=== PATIENT | female | born 1940 | race Caucasian/White ===

== ENCOUNTER 2018-06-27 12:53 | Inpatient (IN) | payer MEDICARE, OTHER | END 2018-07-03 09:45 | LOC: ER 12:53 → ED HOLD 15:20 → PCU 3S 19:30 | DX: T79.6XXA Traumatic ischemia of muscle, initial encounter (principal); I50.31 Acute diastolic (congestive) heart failure; G93.41 Metabolic encephalopathy; J44.1 Chronic obstructive pulmonary disease with (acute) exacerbation; E87.4 Mixed disorder of acid-base balance; J96.10 Chronic respiratory failure, unspecified whether with hypoxia or hypercapnia; N17.9 Acute kidney failure, unspecified; E86.0 Dehydration; S09.90XA Unspecified injury of head, initial encounter; I48.91 Unspecified atrial fibrillation; E87.5 Hyperkalemia; I27.20 Pulmonary hypertension, unspecified ==

== ENCOUNTER 2023-07-23 01:36 | Inpatient (IN) | payer MEDICARE, OTHER ==
[2023-07-23] VITALS (27 sets, daily range): BP systolic 73–126; BP diastolic 25–92; PULSE 51–75; RESP 13–24; TEMP 96.1–97.8; O2SAT 94–100
[~2023-07-23] VITALS: Ht 165.1 cm; Wt 114.0 kg
[~2023-07-23 01:36] MED LIST: CARV6.253 PO; CITA-119 PO; DABI150C PO; HYDR-4353 PO; LOSA50TA64 PO; SIMV-342 PO; SPIR25TA5 PO
[2023-07-23 02:26] LABS: BASOPHILS # (AUTO) 0.1 X10'3 (0-0.2); BASOPHILS % (AUTO) 0.6 % (0-1); EOSINOPHILS % (AUTO) 0.3 % (0-6); LYMPHOCYTES # (AUTO) 2.1 X10'3 (1.1-4.8); LYMPHOCYTES % (AUTO) 16.8 % (21-51); MEAN CORPUSCULAR HEMOGLOBIN 24.5 PG (27.0-31.0); MEAN CORPUSCULAR HGB CONC 31.5 g/dL (33.0-36.5); MEAN CORPUSCULAR VOLUME 77.7 FL (78-98); MEAN PLATELET VOLUME 7.8 FL (7.4-10.4); MONOCYTES # (AUTO) 0.6 X10'3 (0-0.9); MONOCYTES % (AUTO) 4.8 % (2-12); NEUTROPHILS # (AUTO) 9.7 X10'3 (1.8-7.7); NEUTROPHILS % (AUTO) 77.5 % (42-75); PLATELET COUNT 226 X10'3 (140-440); RED BLOOD COUNT 1.33 X10'6 (4.20-5.60); RED CELL DISTRIBUTION WIDTH 18.9 % (11.5-14.5); WHITE BLOOD COUNT 12.5 X10'3 (4.5-11.0)
[2023-07-23 02:34] LABS: HEMOGLOBIN 3.2 g/dl (12.0-16.0)
[2023-07-23 02:35] LABS: HEMATOCRIT 10.3 % (35.0-45.0)
[2023-07-23 02:45] LABS: ALANINE AMINOTRANSFERASE 12 U/L (12-78); ALBUMIN 2.3 G/DL (3.4-5.0); ALBUMIN/GLOBULIN RATIO 0.8 (1.1-1.5); ALKALINE PHOSPHATASE 70 IU/L (46-116); ANION GAP 11 (8-16); ASPARTATE AMINO TRANSFERASE 12 U/L (10-37); BILIRUBIN,TOTAL 0.3 MG/DL (0.1-1.0); BLOOD UREA NITROGEN 127 MG/DL (7-18); CALCIUM 8.2 MG/DL (8.5-10.1); CHLORIDE 103 MMOL/L (99-107); CREATININE 1.74 MG/DL (0.40-0.90); GLUCOSE 204 MG/DL (70-104); POTASSIUM 5.7 MMOL/L (3.5-5.1); SODIUM 137 MMOL/L (135-145); TOTAL CARBON DIOXIDE 22.8 MMOL/L (24-32); TOTAL PROTEIN 5.3 G/DL (6.4-8.2); eCRCL 22 ML/MIN; eGFR 28 ML/MIN
[2023-07-23] MEDS ORDERED: calcium gluconate inj. 1 GM in normal saline 100ml IV soln 100 ML IV ONE (02:50)
[2023-07-23] MEDS: sodium polystyrene sulfonate 15gm/60ml oral suspension PO ONE (02:50)
[2023-07-23 02:54] LABS: PRO BRAIN NATRIURETIC PEPTIDE 1342 PG/ML (0-450)
[2023-07-23] MEDS: CALCIUM GLUC 1gm/50ml NACL,iso 50 ML IV ONE (02:56)
[2023-07-23] MEDS: pantoprazole 40 MG vial IV STA (03:08)
[2023-07-23] MEDS: sodium bicarbonate (8.4%) 1 mEq/ml syringe IV ONE (03:08)
[2023-07-23] MEDS: dextrose 50%-water 50ml dispensing syringe IV ONE (03:08)
[2023-07-23] MEDS: acetaminophen 1,000mg/100ml IV 100 ML IV STA (03:09)
[2023-07-23] MEDS: insulin regular, human U-100 3ml vial - multi-dose IV ONE (03:12)
[2023-07-23] MEDS: LIDOcaine 5% patch TP STA (03:18)
[2023-07-23] MEDS: morphine 2 MG/ML inj. syringe IV ONE (04:23)
[2023-07-23] MEDS ORDERED: potassium Cl 40MEQ/1/2NS 520ml 520 ML IV PRN (04:30)
[2023-07-23] MEDS ORDERED: magnesium hydroxide 30ml (MOM) UD suspension PO PRN (04:30)
[2023-07-23] MEDS ORDERED: ondansetron/PF 4mg/2ml inj IV PRN (04:30)
[2023-07-23] MEDS ORDERED: magnesium Cl slow-release 64mg tablet PO PRN (04:30)
[2023-07-23] MEDS ORDERED: morphine 2 MG/ML inj. syringe IV PRN (04:30)
[2023-07-23] MEDS ORDERED: magnesium 2GM in 50ml NS 50 ML IV PRN (04:30)
[2023-07-23] MEDS ORDERED: magnesium 4gm in 100ml NS 100 ML IV PRN (04:30)
[2023-07-23] MEDS ORDERED: mag hydrox/Alum hydrox/simeth 30ml oral suspension PO PRN (04:30)
[2023-07-23] MEDS ORDERED: potassium Cl 20 mEq SR tablet PO PRN ×2 (04:30)
[2023-07-23 07:32] LABS: HEMATOCRIT 23.6 % (35.0-45.0); HEMOGLOBIN 7.7 g/dl (12.0-16.0); MEAN CORPUSCULAR HEMOGLOBIN 27.8 PG (27.0-31.0); MEAN CORPUSCULAR HGB CONC 32.5 g/dL (33.0-36.5); MEAN CORPUSCULAR VOLUME 85.5 FL (78-98); MEAN PLATELET VOLUME 7.9 FL (7.4-10.4); PLATELET COUNT 171 X10'3 (140-440); RED BLOOD COUNT 2.76 X10'6 (4.20-5.60); RED CELL DISTRIBUTION WIDTH 17.8 % (11.5-14.5); WHITE BLOOD COUNT 13.7 X10'3 (4.5-11.0)
[2023-07-23] MEDS: K and/or MAG REPLACEMENT MC SCH (07:34)
[2023-07-23] MEDS: docusate sod 100mg capsule PO SCH (07:34)
[2023-07-23] MEDS: pantoprazole 40MG/NS 100ML BAG 100 ML IV SCH (07:34)
[2023-07-23 08:03] LABS: BILIRUBIN,URINE NEGATIVE (Neg); CLARITY,URINE CLEAR (Clear); COLOR,URINE YELLOW (Yellow); GLUCOSE, URINE NEGATIVE (Neg); KETONES,URINE NEGATIVE (Neg); LEUKOCYTE ESTERASE ,URINE SMALL (Neg); NITRITES, URINE NEGATIVE (Neg); OCCULT BLOOD,URINE NEGATIVE (Neg); PH,URINE 5.5 (4.8-8.0); PROTEIN,URINE NEGATIVE (Neg); UROBILINOGEN,URINE 0.2 E.U/dL (0.2-1.0)
[2023-07-23 08:08] LABS: UA COLLECTION TYPE NON-SPECIFIED
[2023-07-23 08:15] LABS: BACTERIA,URINE FEW /HPF (Neg); MUCUS STRANDS NONE SEEN /LPF (Neg); RBC,URINE NONE SEEN /HPF (0-2); SQUAMOUS EPITHELIAL CELL,UR FEW /LPF (FEW)
[2023-07-23 08:15] LABS: TOTAL IRON BINDING CAPACITY 315 UG/DL (259-388)
[2023-07-23 08:25] LABS: % IRON SATURATION 24 % (11-46); IRON 77 UG/DL (49-151)
[2023-07-23 08:30] LABS: RED BLOOD COUNT 1.36 X10'6 (4.20-5.60); RETICULOCYTE % (AUTO) 4.1 % (0.5-1.5)
[2023-07-23] MEDS: morphine 2 MG/ML inj. syringe IV PRN (08:30)
[2023-07-23 08:37] LABS: MAGNESIUM 2.7 MG/DL (1.5-2.4)
[2023-07-23] MEDS ORDERED: glucagon, human recombinant 1mg kit SUBCUT PRN (10:30)
[2023-07-23] MEDS: MESSAGE TO PHARMACY PO ONE (10:30)
[2023-07-23] MEDS ORDERED: dextrose 50%-water 50ml dispensing syringe IV PRN ×2 (10:30)
[2023-07-23] MEDS ORDERED: DEXTROSE 15 GM of carb/4 tabs (each vial/BOTTLE has 4 tablets) PO PRN ×2 (10:30)
[2023-07-23] MEDS ORDERED: insulin Lispro (HumaLOG) vial - multi-dose SQ SCH (10:30)
[2023-07-23 10:41] LABS: POTASSIUM 5.7 MMOL/L (3.5-5.1)
[2023-07-23] MEDS: PEG 3350/Na sulf,bicarb,Cl/KCl oral sol 4 liter bottle PO ONE (15:19)
[2023-07-23] MEDS ORDERED: acetaminophen 325mg tablet PO PRN (19:20)
[2023-07-23 20:02] LABS: MEAN CORPUSCULAR HEMOGLOBIN 29.5 PG (27.0-31.0); MEAN CORPUSCULAR HGB CONC 33.7 g/dL (33.0-36.5); MEAN CORPUSCULAR VOLUME 87.6 FL (78-98); MEAN PLATELET VOLUME 7.6 FL (7.4-10.4); PLATELET COUNT 132 X10'3 (140-440); RED BLOOD COUNT 2.18 X10'6 (4.20-5.60); RED CELL DISTRIBUTION WIDTH 18.3 % (11.5-14.5)
[2023-07-23 20:14] LABS: HEMATOCRIT 19.1 % (35.0-45.0); HEMOGLOBIN 6.5 g/dl (12.0-16.0)
[2023-07-23] MEDS: albumin (Human) 5% 250ml 250 ML IV STA (20:44)
[2023-07-23] MEDS: acetaminophen 325mg tablet PO PRN (20:48)
[2023-07-23] MEDS: insulin glargine (Lantus) pen - multi-dose SQ SCH (21:00)
[2023-07-23 22:13] LABS: ALBUMIN 2.5 G/DL (3.4-5.0); ANION GAP 7 (8-16); BLOOD UREA NITROGEN 106 MG/DL (7-18); BUN/CREATININE RATIO 72.6 (10.0-20.0); CALCIUM 7.4 MG/DL (8.5-10.1); CHLORIDE 104 MMOL/L (99-107); CREATININE 1.46 MG/DL (0.40-0.90); GLUCOSE 167 MG/DL (70-104); POTASSIUM 4.6 MMOL/L (3.5-5.1); SODIUM 141 MMOL/L (135-145); TOTAL CARBON DIOXIDE 29.7 MMOL/L (24-32); eCRCL 26 ML/MIN; eGFR 34 ML/MIN
[2023-07-24] VITALS (17 sets, daily range): BP systolic 87–134; BP diastolic 35–82; PULSE 57–82; RESP 16–24; TEMP 96.5–97.8; O2SAT 92–99
[2023-07-24] MEDS: HYDROcodone/acetaminophen 5mg/325mg tablet PO PRN (01:04)
[2023-07-24 08:19] LABS: BASOPHILS # (AUTO) 0.1 X10'3 (0-0.2); BASOPHILS % (AUTO) 0.6 % (0-1); EOSINOPHILS # (AUTO) 0.2 X10'3 (0-0.9); EOSINOPHILS % (AUTO) 1.8 % (0-6); HEMATOCRIT 32.6 % (35.0-45.0); HEMOGLOBIN 10.9 g/dl (12.0-16.0); LYMPHOCYTES # (AUTO) 1.5 X10'3 (1.1-4.8); LYMPHOCYTES % (AUTO) 11.1 % (21-51); MEAN CORPUSCULAR HEMOGLOBIN 29.5 PG (27.0-31.0); MEAN CORPUSCULAR HGB CONC 33.6 g/dL (33.0-36.5); MEAN CORPUSCULAR VOLUME 87.7 FL (78-98); MEAN PLATELET VOLUME 7.8 FL (7.4-10.4); MONOCYTES # (AUTO) 1.4 X10'3 (0-0.9); MONOCYTES % (AUTO) 9.8 % (2-12); NEUTROPHILS # (AUTO) 10.6 X10'3 (1.8-7.7); NEUTROPHILS % (AUTO) 76.7 % (42-75); PLATELET COUNT 162 X10'3 (140-440); RED BLOOD COUNT 3.71 X10'6 (4.20-5.60); WHITE BLOOD COUNT 13.8 X10'3 (4.5-11.0)
[2023-07-24 08:31] LABS: ALANINE AMINOTRANSFERASE 12 U/L (12-78); ALBUMIN 2.6 G/DL (3.4-5.0); ALBUMIN/GLOBULIN RATIO 0.8 (1.1-1.5); ALKALINE PHOSPHATASE 81 IU/L (46-116); ANION GAP 9 (8-16); ASPARTATE AMINO TRANSFERASE 29 U/L (10-37); BILIRUBIN,TOTAL 1.3 MG/DL (0.1-1.0); BLOOD UREA NITROGEN 95 MG/DL (7-18); BUN/CREATININE RATIO 72.5 (10.0-20.0); CALCIUM 7.6 MG/DL (8.5-10.1); CHLORIDE 106 MMOL/L (99-107); CREATININE 1.31 MG/DL (0.40-0.90); GLUCOSE 132 MG/DL (70-104); MAGNESIUM 2.6 MG/DL (1.5-2.4); POTASSIUM 4.3 MMOL/L (3.5-5.1); SODIUM 141 MMOL/L (135-145); TOTAL CARBON DIOXIDE 25.9 MMOL/L (24-32); TOTAL PROTEIN 5.8 G/DL (6.4-8.2); eCRCL 29 ML/MIN; eGFR 39 ML/MIN
[2023-07-24] MEDS: furosemide 40mg/4ml inj IV SCH (10:58)
[2023-07-24 13:37] LABS: HEMATOCRIT 32.5 % (35.0-45.0); MEAN CORPUSCULAR HEMOGLOBIN 29.5 PG (27.0-31.0); MEAN CORPUSCULAR HGB CONC 33.8 g/dL (33.0-36.5); MEAN CORPUSCULAR VOLUME 87.3 FL (78-98); MEAN PLATELET VOLUME 7.8 FL (7.4-10.4); PLATELET COUNT 175 X10'3 (140-440); RED BLOOD COUNT 3.72 X10'6 (4.20-5.60); RED CELL DISTRIBUTION WIDTH 18.4 % (11.5-14.5); WHITE BLOOD COUNT 14.3 X10'3 (4.5-11.0)
[2023-07-24] MEDS ORDERED: fentaNYL/PF 50MCG/1 ML 2ML syringe ONE (13:43)
[2023-07-24] MEDS ORDERED: MIDAZolam 1 MG/ML 5ML VIAL ONE (13:43)
[2023-07-24] MEDS ORDERED: LIDOcaine 2% Viscous 15ml cup ONE (13:50)
[2023-07-24] MEDS: atorvastatin 10mg tablet PO SCH (20:09)
[2023-07-24 20:54] LABS: HEMATOCRIT 30.1 % (35.0-45.0); HEMOGLOBIN 10.4 g/dl (12.0-16.0); MEAN CORPUSCULAR HEMOGLOBIN 29.9 PG (27.0-31.0); MEAN CORPUSCULAR HGB CONC 34.4 g/dL (33.0-36.5); MEAN CORPUSCULAR VOLUME 86.8 FL (78-98); MEAN PLATELET VOLUME 7.6 FL (7.4-10.4); PLATELET COUNT 157 X10'3 (140-440); RED BLOOD COUNT 3.47 X10'6 (4.20-5.60); RED CELL DISTRIBUTION WIDTH 18.6 % (11.5-14.5); WHITE BLOOD COUNT 13.3 X10'3 (4.5-11.0)
[2023-07-25] VITALS (9 sets, daily range): BP systolic 111–152; BP diastolic 40–89; PULSE 66–81; RESP 15–19; TEMP 97–98.1; O2SAT 94–99
[2023-07-25 08:35] LABS: BASOPHILS # (AUTO) 0.1 X10'3 (0-0.2); BASOPHILS % (AUTO) 0.9 % (0-1); EOSINOPHILS # (AUTO) 0.2 X10'3 (0-0.9); EOSINOPHILS % (AUTO) 1.8 % (0-6); HEMOGLOBIN 10.7 g/dl (12.0-16.0); LYMPHOCYTES # (AUTO) 1.9 X10'3 (1.1-4.8); LYMPHOCYTES % (AUTO) 14.1 % (21-51); MEAN CORPUSCULAR HEMOGLOBIN 29.5 PG (27.0-31.0); MEAN CORPUSCULAR HGB CONC 33.4 g/dL (33.0-36.5); MEAN CORPUSCULAR VOLUME 88.3 FL (78-98); MEAN PLATELET VOLUME 7.8 FL (7.4-10.4); MONOCYTES # (AUTO) 1.2 X10'3 (0-0.9); MONOCYTES % (AUTO) 8.8 % (2-12); NEUTROPHILS # (AUTO) 9.8 X10'3 (1.8-7.7); NEUTROPHILS % (AUTO) 74.4 % (42-75); PLATELET COUNT 186 X10'3 (140-440); RED BLOOD COUNT 3.63 X10'6 (4.20-5.60); RED CELL DISTRIBUTION WIDTH 18.7 % (11.5-14.5); WHITE BLOOD COUNT 13.1 X10'3 (4.5-11.0)
[2023-07-25 08:54] LABS: ALANINE AMINOTRANSFERASE 17 U/L (12-78); ALBUMIN 2.7 G/DL (3.4-5.0); ALBUMIN/GLOBULIN RATIO 0.8 (1.1-1.5); ALKALINE PHOSPHATASE 91 IU/L (46-116); ANION GAP 4 (8-16); ASPARTATE AMINO TRANSFERASE 37 U/L (10-37); BILIRUBIN,TOTAL 0.8 MG/DL (0.1-1.0); BLOOD UREA NITROGEN 76 MG/DL (7-18); BUN/CREATININE RATIO 67.3 (10.0-20.0); CALCIUM 7.9 MG/DL (8.5-10.1); CHLORIDE 104 MMOL/L (99-107); CREATININE 1.13 MG/DL (0.40-0.90); GLUCOSE 130 MG/DL (70-104); MAGNESIUM 2.4 MG/DL (1.5-2.4); POTASSIUM 3.7 MMOL/L (3.5-5.1); SODIUM 140 MMOL/L (135-145); TOTAL CARBON DIOXIDE 31.6 MMOL/L (24-32); TOTAL PROTEIN 6.1 G/DL (6.4-8.2); eCRCL 34 ML/MIN; eGFR 46 ML/MIN
[2023-07-25] MEDS: citalopram 20mg tablet PO SCH (09:08)
[2023-07-25] MEDS: pantoprazole 40mg Tablet.DR PO SCH (21:02)
[2023-07-26] VITALS (7 sets, daily range): BP systolic 103–141; BP diastolic 40–64; PULSE 72–84; RESP 13–22; TEMP 97.2–98.3; O2SAT 96–99
[2023-07-26 08:17] LABS: BASOPHILS # (AUTO) 0.1 X10'3 (0-0.2); BASOPHILS % (AUTO) 0.6 % (0-1); EOSINOPHILS # (AUTO) 0.1 X10'3 (0-0.9); EOSINOPHILS % (AUTO) 1.4 % (0-6); HEMATOCRIT 29.7 % (35.0-45.0); LYMPHOCYTES # (AUTO) 1.4 X10'3 (1.1-4.8); MEAN CORPUSCULAR HEMOGLOBIN 29.6 PG (27.0-31.0); MEAN CORPUSCULAR HGB CONC 33.5 g/dL (33.0-36.5); MEAN CORPUSCULAR VOLUME 88.4 FL (78-98); MEAN PLATELET VOLUME 7.5 FL (7.4-10.4); MONOCYTES # (AUTO) 1.1 X10'3 (0-0.9); MONOCYTES % (AUTO) 10.5 % (2-12); NEUTROPHILS # (AUTO) 7.6 X10'3 (1.8-7.7); NEUTROPHILS % (AUTO) 73.5 % (42-75); PLATELET COUNT 187 X10'3 (140-440); RED BLOOD COUNT 3.37 X10'6 (4.20-5.60); RED CELL DISTRIBUTION WIDTH 18.2 % (11.5-14.5); WHITE BLOOD COUNT 10.3 X10'3 (4.5-11.0)
[2023-07-26 08:53] LABS: ALANINE AMINOTRANSFERASE 19 U/L (12-78); ALBUMIN 2.3 G/DL (3.4-5.0); ALBUMIN/GLOBULIN RATIO 0.7 (1.1-1.5); ALKALINE PHOSPHATASE 72 IU/L (46-116); ANION GAP 6 (8-16); ASPARTATE AMINO TRANSFERASE 27 U/L (10-37); BILIRUBIN,TOTAL 0.7 MG/DL (0.1-1.0); CALCIUM 8.5 MG/DL (8.5-10.1); CHLORIDE 107 MMOL/L (99-107); CREATININE 0.85 MG/DL (0.40-0.90); GLUCOSE 136 MG/DL (70-104); MAGNESIUM 2.3 MG/DL (1.5-2.4); POTASSIUM 3.8 MMOL/L (3.5-5.1); SODIUM 145 MMOL/L (135-145); TOTAL CARBON DIOXIDE 31.7 MMOL/L (24-32); TOTAL PROTEIN 5.5 G/DL (6.4-8.2); eCRCL 45 ML/MIN; eGFR 64 ML/MIN
[2023-07-26 08:59] LABS: BLOOD UREA NITROGEN 52 MG/DL (7-18); BUN/CREATININE RATIO 61.2 (10.0-20.0)
[2023-07-27 02:00] VITALS: BP 119/60; PULSE 74; RESP 18; TEMP 97.6; O2SAT 94
[2023-07-27] MEDS ORDERED: DEXTROSE 15 GM of carb/4 tabs (each vial/BOTTLE has 4 tablets) PO PRN ×2 (02:05)
[2023-07-27] MEDS ORDERED: glucagon, human recombinant 1mg kit SUBCUT PRN (02:05)
[2023-07-27] MEDS ORDERED: dextrose 50%-water 50ml dispensing syringe IV PRN ×2 (02:05)
[2023-07-27 06:00] VITALS: BP 125/51; PULSE 87; RESP 16; TEMP 97.3; O2SAT 97
[2023-07-27 08:10] LABS: BASOPHILS # (AUTO) 0.1 X10'3 (0-0.2); BASOPHILS % (AUTO) 0.7 % (0-1); EOSINOPHILS # (AUTO) 0.3 X10'3 (0-0.9); EOSINOPHILS % (AUTO) 2.8 % (0-6); HEMATOCRIT 32.8 % (35.0-45.0); HEMOGLOBIN 10.7 g/dl (12.0-16.0); LYMPHOCYTES # (AUTO) 1.3 X10'3 (1.1-4.8); LYMPHOCYTES % (AUTO) 13.4 % (21-51); MEAN CORPUSCULAR HEMOGLOBIN 29.2 PG (27.0-31.0); MEAN CORPUSCULAR HGB CONC 32.6 g/dL (33.0-36.5); MEAN CORPUSCULAR VOLUME 89.6 FL (78-98); MEAN PLATELET VOLUME 7.3 FL (7.4-10.4); MONOCYTES % (AUTO) 10.1 % (2-12); NEUTROPHILS # (AUTO) 7.1 X10'3 (1.8-7.7); PLATELET COUNT 215 X10'3 (140-440); RED BLOOD COUNT 3.66 X10'6 (4.20-5.60); WHITE BLOOD COUNT 9.8 X10'3 (4.5-11.0)
[2023-07-27 08:30] VITALS: RESP 14; O2SAT 94
[2023-07-27 08:38] LABS: ALANINE AMINOTRANSFERASE 17 U/L (12-78); ALBUMIN 2.5 G/DL (3.4-5.0); ALBUMIN/GLOBULIN RATIO 0.7 (1.1-1.5); ALKALINE PHOSPHATASE 89 IU/L (46-116); ANION GAP 0 (8-16); ASPARTATE AMINO TRANSFERASE 27 U/L (10-37); BILIRUBIN,TOTAL 1.1 MG/DL (0.1-1.0); BLOOD UREA NITROGEN 38 MG/DL (7-18); BUN/CREATININE RATIO 43.2 (10.0-20.0); CALCIUM 8.6 MG/DL (8.5-10.1); CHLORIDE 101 MMOL/L (99-107); CREATININE 0.88 MG/DL (0.40-0.90); GLUCOSE 156 MG/DL (70-104); MAGNESIUM 2.1 MG/DL (1.5-2.4); POTASSIUM 3.8 MMOL/L (3.5-5.1); SODIUM 141 MMOL/L (135-145); TOTAL PROTEIN 6.2 G/DL (6.4-8.2); eCRCL 44 ML/MIN; eGFR 61 ML/MIN
[2023-07-27 08:50] LABS: TOTAL CARBON DIOXIDE 40.4 MMOL/L (24-32)
[2023-07-27] MEDS ORDERED: PANT40TA54 PO (10:16)
[2023-07-27] MEDS ORDERED: FURO-150 PO (10:16)
[2023-07-27 11:00] VITALS: BP 114/53; PULSE 73; RESP 21; TEMP 98.3; O2SAT 96
[2023-07-27] MEDS: insulin Lispro (HumaLOG) vial - multi-dose SQ SCH (12:30)
[2023-07-27 14:50] VITALS: RESP 19
[2023-07-27] MEDS ORDERED: insulin glargine (Lantus) pen - multi-dose SQ SCH (21:00)
== END 2023-07-27 15:12 | DRG 377 ==
LOC: ER 01:37 → ED HOLD 04:38 → PCU 3S 09:45
PROVIDERS: ADMIT Student in an Organized Health Care Education/Training Program; ATTEND Internal Medicine
PROC: 0DB68ZX Excision of Stomach, Via Natural or Artificial Opening Endoscopic, Diagnostic (ICD-10-PCS; principal; 2023-07-23)
PROC: 0DJD8ZZ Inspection of Lower Intestinal Tract, Via Natural or Artificial Opening Endoscopic (ICD-10-PCS; 2023-07-23)
PROC: 30233N1 Transfusion of Nonautologous Red Blood Cells into Peripheral Vein, Percutaneous Approach (ICD-10-PCS; 2023-07-23)
DX: K29.01 Acute gastritis with bleeding (principal); I50.33 Acute on chronic diastolic (congestive) heart failure; J96.01 Acute respiratory failure with hypoxia; N17.0 Acute kidney failure with tubular necrosis; I48.20 Chronic atrial fibrillation, unspecified; D62 Acute posthemorrhagic anemia; Z68.41 Body mass index [BMI] 40.0-44.9, adult; I13.0 Hypertensive heart and chronic kidney disease with heart failure and stage 1 through stage 4 chronic kidney disease, or unspecified chronic kidney disease; K29.81 Duodenitis with bleeding; K20.91 Esophagitis, unspecified with bleeding; E66.01 Morbid (severe) obesity due to excess calories; N18.30 Chronic kidney disease, stage 3 unspecified; E11.22 Type 2 diabetes mellitus with diabetic chronic kidney disease; I27.81 Cor pulmonale (chronic); K44.9 Diaphragmatic hernia without obstruction or gangrene; K64.8 Other hemorrhoids; K57.30 Diverticulosis of large intestine without perforation or abscess without bleeding; I48.91 Unspecified atrial fibrillation; M10.9 Gout, unspecified; E87.5 Hyperkalemia; J44.9 Chronic obstructive pulmonary disease, unspecified; Z88.1 Allergy status to other antibiotic agents; Z79.899 Other long term (current) drug therapy; Z79.01 Long term (current) use of anticoagulants; Z99.3 Dependence on wheelchair
CPT/HCPCS: 36415; 36430; 43239; 45378; 71045; 80048; 80053; 81001; 82728; 82948; 83036; 83540; 83550; 83605; 83735; 83880; 84132; 84145; 84484; 85025; 85027; 85045; 86885; 86900; 86901; 86920; 87040; 87081; 87088; 88305; 88342; 92508; 92616; 93005; 97161; 97530; 97535; 99152; 99153; 99291; A4620; A6212; C1758; C9113; G0378; J0131; J0610; J1815; J1940; J2250; J2270; J3010; J3490; J7030; J7040; J7050; P9016; P9045